=== PATIENT | female | born 1950 ===

== ENCOUNTER 2025-01-24 09:52 | Emergency (ER) | payer MEDICARE ==
[~2025-01-24] VITALS: Ht 172.7 cm; Wt 96.0 kg
--- NOTE | 2025-01-24 10:04 | Physician Documentation ---
History of Present Illness General Stated Complaint: SEE CHIEF Time Seen by MD: 10:09 History of Present Illness Initial Comments The patient is a 74-year-old female who was transported to our facility for a MRI scan from [facility]. The patient has been unresponsive for the last three weeks and they were hoping to obtain an MRI, the patient is ventilator dependent and during the MRI they had difficulty confirming she has a pulse, a rapid response was called and the patient was transported to the emergency department. 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 The patient is unable to provide any history the history was provided by a nurse from [facility] and EMS that was transporting the patient. The patient is trached. 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 GENERAL: The patient is trached verbally unresponsive HEENT: Normocephalic, atraumatic, PERRL, EOMI, dry mucosa, no erythema clean trach site RESPIRATORY: Lungs clear, normal breath sounds with bag-valve ventilation she is trached CHEST: No accessory muscle use, no retractions CV: Regular rate, rhythm, no edema, no murmur, No: JVD GI: Soft, nondistended MUSCULOSKELETAL: No deformities, no edema SKIN: Warm and dry, no rash NEURO: The patient has no corneal reflexes her pupils are 8 mm and fixed she has no gag reflex she has no response to pain Progress Results/Orders Results/Orders Orders - OHCELIO QUINTANILLA MD Electrocardiogram (01/24/25 ) [place] Prov.Neuro Consult (01/24/25 10:32) Completed Orders - CELIO GARCIA MD Cerebral Eeg (01/24/25 09:59) * Eeg Notification (01/24/25 09:59) Electrocardiogram (01/24/25 ) Vital Signs 01/24/25 01/24/25 01/24/25 01/24/25 09:54 10:02 10:08 10:25 Temp 97.6 97.6 Pulse 68 66 65 Resp 18 18 18 18 B/P (MAP) 106/55 123/67 (85) Pulse Ox 100 100 100 O2 Flow Rate 0 FiO2 100 100 01/24/25 01/24/25 11:07 11:11 Temp 97.6 Pulse 64 Resp 18 B/P (MAP) 116/59 Pulse Ox 97 FiO2 50 Laboratory Tests Test 01/24/25 09:55 01/24/25 10:57 Glucometer 135 H Blood Gas Specimen Type Arterial Blood Gas Puncture Site Lr O2 Saturation 99.4 H Arterial Blood pH (Temp corrected) 7.451 H Arterial Blood pCO2 (Temp correct) 35.1 Arterial Blood pO2 (Temp corrected) 236.4 H Arterial Blood PO2/FiO2 Ratio 2.36 Arterial Blood HCO3 23.9 Arterial Blood Base Excess 0.1 Arterial Blood Oxyhemoglobin 98.8 H Arterial Blood Carboxyhemoglobin 0.3 L Arterial Blood Methemoglobin 0.3 Arterial Blood Deoxyhemoglobin 0.6 Clark Test Modified Blood Gas Hemoglobin 8.9 L Blood Gas Temperature 37.0 Blood Gas Set Respiration Rate 18 Blood Gas Modality Vent - ac/prvc FiO2 100.0 Blood Gas Tidal Volume 450 Blood Gas PEEP 5 Medical Decision Making Additional information obtaine: old records Findings The patient was transferred to our facility for an MRI, it was thought that possibly the patient lost their pulse while in MRI. The patient was brought over to our department she was at her neurologic baseline which is completely unresponsive and she was normotensive. Her EKG was nonischemic. The patient had an EEG which showed brain function. The patient was discussed with Dr. Garsia who advised us that he wanted the patient transferred back to [facility]. The patient will be transferred back to [facility] Differential Diagnosis Spoke Guillain-Divide syndrome, locked in syndrome, ALS Departure Time of Disposition: 10:45 Disposition: 02 SHORT TERM HOSPITAL Impression: Primary Impression: Paralysis Additional Impression: Respiratory arrest Referrals: NO PRIMARY CARE PROVIDER (PCP) Signature Scribe Signature: No scribe Attestation: The note accurately reflects work and decisions made by me.Celio Garcia MD 01/28/25 07:42 CELIO GARCIA MD Jan 24, 2025 10:04
[2025-01-24 10:08] VITALS: PULSE 66; RESP 18; O2SAT 100
--- NOTE | 2025-01-24 10:08 | ELECTROCARDIOGRAPH REPORT ---
[facility] Test Date: 2025-01-24 Test Time: 10:05:46 Pat Name: CLAUDE LUCIA Department: EMERGENCY ROOM Room: Gender: F Knee Bolter: : 1950 Requested By: DUANE GARCIA Order Number: [id number] Reading MD: Dr. CHARLY Dennis Measurements Intervals [place] Rate: 67 P: 36 LA: 192 QRS: 47 QRSD: 99 T: 45 QT: 415 QTc: 438 Interpretive Statements Age not entered, assumed to be 48 years old for purpose of ECG interpretation Sinus rhythm Ventricular premature complex Low voltage, precordial leads Abnormal R-wave progression, early transition ST elevation, consider inferior injury Electronically Signed On 01-27-2025 15:14:[address] CHARLY Dennis Please click the below link to view image of tracing.
[2025-01-24 11:04] LABS: ABG BASE EXCESS 0.1 mmol/L (-2.0-3.0); ABG HCO3 23.9 mmol/L (21.0-28.0); ABG OXYGEN SATURATION 99.4 % (94.0-98.0); ABG PCO2 (T) 35.1 mmHg (32.0-45.0); ABG PH (T) 7.451 (7.350-7.450); ABG PO2 (T) 236.4 mmHg (83.0-108.0); ALLEN'S TEST Modified; FCOHb 0.3 % (0.5-1.5); FHHb 0.6 % (0.0-5.0); FIO2 100.0 mmHg/%; FMetHb 0.3 % (0.0-1.5); FO2Hb 98.8 % (94.0-98.0); MODE VENT - AC/prvc; PATIENT TEMPERATURE 37.0; PEEP 5 cm H2O; RESPIRATORY RATE 18 b/min; TIDAL VOLUME 450 mL; TOTAL HEMOGLOBIN 8.9 G/dl (12.0-16.0)
[2025-01-24 11:11] VITALS: BP 116/59; PULSE 64; RESP 18; TEMP 97.6; O2SAT 97
--- NOTE | 2025-01-24 12:09 | PROCEDURE NOTE ---
Procedure Note Providers to CC ~ Interpretation: [place] EEG Note # Demographics Type of EEG Read: - Routine EEG - video Patient Location: - Emergency Room - STAT read requested First Name: Tsering Last Name: Jillian Date of : 1950 Age: 74 Gender: Female Facility: [facility] Time of Initial Page (): 01/24/2025 10:51 First Contact with Site (): 01/24/2025 10:51 # EEG Interpretation Start Time of EEG Read (): 01/24/2025 11:19 Stop Time of EEG Read (): 01/24/2025 11:41 Duration: 0h 22m Technical Details: - The EEG electrodes were placed using the standard International 10-20 system of electrode placement. Video and an accessory EKG lead were used during the course of this study. - This study was recorded using the Giiv EEG software Indication: - seizure # Description Phases Captured: - drowsy Symmetry: symmetric Predominant Frequencies: - theta (4-7 Hz) - abundant (50-89%) Superimposed Frequencies: - delta (2-3 Hz) - frequent (10-49%) Amplitude: normal Reactivity: yes Variability: yes Continuity: continuous EKG: NSR # Abnormalities Epileptiform Abnormalities: - NOT present Focal Slowing: no Seizure: - NOT present # Impression Impression: abnormal 1. Moderate Diffuse Slowing # Clinical Correlation Clinical Correlation: Diffuse slowing is non-specific and may be seen in the setting of diffuse cerebral dysfunction; such as toxic/metabolic/infectious encephalopathy or heavily sedating medication use. # Logistics Telemedicine: remote EEG review: EEG reviewed remotely # Demographics First Name: Tsering Last Name: Jillian Facility: [facility] MEDHAT STEELE MD Jan 24, 2025 12:09
== END 2025-01-24 13:27 | disposition short-term general hospital (02) ==
LOC: ER 09:53
DX: G83.9 Paralytic syndrome, unspecified (principal); R09.2 Respiratory arrest
CPT/HCPCS: 36600; 82803; 82948; 85018; 93005; 94002; 94760; 99285